=== PATIENT | female | born 2005 | race Caucasian/White ===

== ENCOUNTER 2024-08-24 15:56 | Emergency (ER) | payer BC, SELFPAY ==
[2024-08-24 15:56] VITALS: BMI 37.5
[2024-08-24 15:57] VITALS: BP 175/96
--- NOTE | 2024-08-24 17:19 | ED.GENMED ---
History of Present Illness
General
Chief Complaint: Throat Problem
Source: patient
Exam Limitations: none
Time Seen by Provider: 08/24/24 16:55
Nursing documentation reviewed up to this point in time: agreed with
History of Present Illness
History of Present Illness:
Patient is a 18-year-old female who presents to the ER for evaluation of sore throat. Patient is had a sore throat for the past 3 weeks. [facility]. She did complete 3 dose of
prednisone and was on amoxicillin for 4 days. She completed this 4 days ago however was told to stop it because her rapid strep was negative.
She reports no improvement of symptoms and a slight worsening of symptoms. She denies any actual shortness of breath. She is able to drink fluids and swallow her own secretions.
Review of Systems
Review of Systems
Allergies reviewed?: Yes
All Other Systems: ROS reviewed and negative except as documented in HPI and ROS
Constitutional: Reports no symptoms; Denies fever, fatigue or chills
EENT: Reports sore throat; Denies tearing, mouth pain, mouth swelling or runny nose
Respiratory: Reports no symptoms; Denies trouble breathing
Cardiac: Reports no symptoms
ABD/GI: Reports no symptoms
: Reports no symptoms
Musculoskeletal: Reports no symptoms
Skin: Reports no symptoms
Neurological: Reports no symptoms
Psychiatric: Reports no symptoms
Phy Exam
General Physical Exam
General Presentation: no apparent distress
General age: appears stated age
General Skin: warm and dry
General Habitus: normal
General Mental: alert
General Hydration: appears well hydrated
ENT Exam
ENT Exam: other (Tonsils are very swollen there is exudate and left posterior pharynx appears full uvula appears midline+ anterior cervical lymphadenopathy. No trismus no drooling)
Cardiovascular Exam
Cardiovascular Exam: regular rate/rhythm, no murmur and normal peripheral pulses
Pulmonary Exam
Pulmonary Exam: lungs clear and no respiratory distress
Neurological Exam
Neurological Exam: alert and oriented x3
Musculoskeletal Exam
Musculoskeletal Exam: full ROM
Skin Exam
Skin Exam: normal color and warm/dry
Psychiatric Exam
Psychiatric Exam: normal mood/affect
Course
Orders/Labs/Results
Orders:
Orders
08/24/24 16:02
Test Result ONCE
08/24/24 17:16
CT Neck With Iv Contrast Urgent
Comment:
Reason For Exam: woresning sore throat
08/24/24 17:17
IV Insert/Care/Rem.- Treatment PRN
0.9% Sodium Chloride 1000 ml [Nss] 1,000 ml IV BOLUS
Dexamethasone Sod Phosphate [Decadron] 10 mg IV NOW STA
08/24/24 17:18
Ketorolac [Toradol] 15 mg IV NOW STA
08/24/24 17:42
Complete Blood Count/With Diff Urgent
Comprehensive Metabolic Panel Urgent
HCG, Serum Qualitative Screen Urgent
Monotest Urgent
Rapid Strep Group A Urgent
MARIANA Source: Throat/Pharynx
Specimen Description:
Date Specimen was Collected: 08/24/24
Time Specimen was Collected: 17:41
Throat Culture [Throat Culture, Comprehensive] Urgent
MARIANA Source: Throat/Pharynx
Specimen Description:
Date Specimen was Collected: 08/24/24
Time Specimen was Collected: 17:41
08/24/24 20:13
Clindamycin Phosphate [Cleocin] 300 mg 0.9% Sodium Chloride [Nss] 50 ml IV NOW
08/24/24 20:33
Acetaminophen [Tylenol] 650 mg PO NOW STA
08/24/24 20:34
Vital Signs- Treatment ONCE
Frequency: Once
Abnormal Lab Results
08/24/24
17:42
WBC 13.8 H 10^3/uL
(4.8-10.8)
MCH 26.2 L pg
(27.0-31.0)
MCHC 32.3 L g/dL
(33.0-37.0)
Abs Immat Gran (auto) 0.1 H 10^3/uL
(0-0.05)
Absolute Neuts (auto) 10.4 H 10^3/uL
(1.4-6.5)
Absolute Monos (auto) 0.9 H 10^3/uL
(0.1-0.6)
Neutrophils % 75.6 H %
(42.2-75.2)
Lymphocytes % 16.5 L %
(20.5-51.1)
Chloride 108 H mmol/L
(98-107)
ALT 40 H U/L
(0-35)
08/24/24 17:42
08/24/24 17:42
Vital Signs
Initial and Last Documented VS:
Initial Vital Signs
Temp Pulse Resp BP Pulse Ox
100.0 F 112 18 175/96 99
08/24/24 15:57 08/24/24 15:57 08/24/24 15:57 08/24/24 15:57 08/24/24 15:57
Last Documented Vital Signs
Temp Pulse Resp BP Pulse Ox
100.0 F 112 18 175/96 99
08/24/24 15:57 08/24/24 15:57 08/24/24 15:57 08/24/24 15:57 08/24/24 15:57
Material Mover consulted with Physician
Material Mover consulted with physician?: Yes
Name of Physician Consulted: Katelynn
MDM/Problems Addressed
MDM/Problems Addressed:
As documented patient is a 18-year-old female who has had intermittent sore throat for the past several weeks and several days of steroid and several days of antibiotics however has tested negative for strep. Patient presents with persistent sore
throat. She is nontoxic she is not drooling low-grade temp of 100. Her white count is minimally elevated 13.8. She does have obvious swelling to the posterior pharynx soft tissue palate region uvula midline exudative tonsils CAT scan does show
findings of slight is with a hypodense collection along the left palate teen tonsil likely peritonsillar abscess. Case discussed with ENT Dr. Brennan on-call. Patient received fluids and Decadron. Will give 1 dose of clindamycin and he will have
patient seen in the morning in the [place] office. Instructions reviewed with mother and patient. Will send a script of Clindamycin to pharmacy .
*Radiology
Radiology exam reviewed: radiology read reviewed (Findings of tonsillitis with a hypodense collection along the left palatine tonsil likely peritonsillar abscess)
*Pulse Oximetry
Patient hypoxic: no
*Critical Care Note
Total Time (30-74mins, 75-104mins- exclusive of procedures): Not Applicable
Patient Management
Discussion with other providers: [place] (ENT DR Brennan )
ED Attending Note
-
Portions of this chart may have been created with voice recognition software.� Occasional wrong word or��sound alike� substitutions may have occurred due to the inherent limitations of voice recognition software.
Discharge Plan
Departure
Patient Disposition: Home (Routine Discharge)
Date of Disposition: 08/24/24
Time of Disposition: 20:32
Patient with high blood pressure during this ER visit?: Yes
Condition: Fair
Covid-19: Not Applicable
Discharge Problem:
Abscess, peritonsillar
Instructions: Peritonsillar Abscess, Adult (DC), BLOOD PRESSURE
Prescriptions:
New
clindamycin HCl [Cleocin HCl] 300 mg capsule
300 mg PO Q6H Qty: 40 0RF
Referrals:
Dick Brennan MD [Active] -
UNKNOWN - PT DOES,NOT KNOW [Family Provider] -
Activity Restrictions/Additional Instructions:
As discussed you may either call ENT office in the morning or go directly to the office in [place] for evaluation and treatment of peritonsillar abscess.
You were given a dose of IV antibiotics and a prescription for clindamycin was sent to your pharmacy. Return if any worsening of symptoms
Interventions
Interventions:
*Risk Screen - Suicide Last Done: 08/24/24 15:57
*General Assessment Last Done: 08/24/24 15:57
*Neglect/Abuse Screening Last Done: 08/24/24 15:57
*ED- Fall Risk Assessment Last Done: 08/24/24 18:24
*ED COVID-19 Vaccine History Last Done: 08/24/24 15:57
ED-EENT Assessment Last Done: 08/24/24 17:45
ED- Pulmonary Assessment Last Done: 08/24/24 17:46
Discharge Date and Time
Print Language: MOZAMBICAN
[2024-08-24] MEDS: TORADOL 15 MG IV (17:33)
[2024-08-24] MEDS: NSS 1000 IV (17:33)
[2024-08-24] MEDS: DECADRON 10 MG IV (17:33)
[2024-08-24 17:56] LABS: % Basophils 0.2 % (0-2); % Immature Granulocytes 0.4 % (0-0.5); % Lymphocytes 16.5 % (20.5-51.1); % Monocytes 6.3 % (1.7-9.3); % Neutrophils 75.6 % (42.2-75.2); Absolute Eosinophils 0.1 10^3/uL (0-0.7); Absolute Immature Granulocytes 0.1 10^3/uL (0-0.05); Absolute Lymphocytes 2.3 10^3/uL (1.2-3.4); Absolute Monocytes 0.9 10^3/uL (0.1-0.6); Absolute Neutrophils 10.4 10^3/uL (1.4-6.5); Hemoglobin 13.9 g/dL (12.0-16.0); Mean Corp Hgb Conc. 32.3 g/dL (33.0-37.0); Mean Corpuscular Hgb 26.2 pg (27.0-31.0); Mean Corpuscular Volume 81.1 fL (81.0-99.0); Mean Platelet Volume 9.7 fL (7.4-10.4); Nucleated Red Blood Cells % 0 %; Platelet Count 341 10^3/uL (130-400); Red Cell Dist. Width 13.9 % (11.5-14.5); White Blood Cell Count 13.8 10^3/uL (4.8-10.8)
[2024-08-24 18:02] LABS: HCG, Serum Qualitative Screen Negative; Monotest Negative (Negative)
[2024-08-24 18:05] LABS: ALT (SGPT) 40 U/L (0-35); AST (SGOT) 23 U/L (14-36); Alkaline Phosphatase 77 U/L (38-126); Blood Urea Nitrogen 9 mg/dl (7-17); Calcium 9.9 mg/dl (8.4-10.2); Carbon Dioxide 24 mmol/L (22-30); Chloride 108 mmol/L (98-107); Glucose 86 mg/dl (70-99); Potassium 4.4 mmol/L (3.5-5.1); Sodium 142 mmol/L (135-145); Total Bilirubin 0.5 mg/dl (0.2-1.3); Total Protein 7.4 g/dl (6.3-8.2); eGFR > 60.00
[2024-08-24] MEDS: TYLENOL 650 MG PO (21:12)
[2024-08-24] MEDS: CLEOCIN 52 MG IV (21:15)
[2024-08-24 21:21] VITALS: BP 138/84
== END 2024-08-24 22:04 | disposition home or self-care (01) ==
LOC: EMR 15:56
PROVIDERS: Student in an Organized Health Care Education/Training Program; EMERGENCY PHYSICIAN Emergency Medicine
DX: J36 Peritonsillar abscess (principal); R03.0 Elevated blood-pressure reading, without diagnosis of hypertension
CPT/HCPCS: 99285; 96365; 96375 ×2; 96361; 70491; 80053; 84703; 85025; 86308; 87070; 87880; Q9967

== ENCOUNTER 2024-10-05 06:25 | Day surgery (SDC) | payer BC, SELFPAY ==
[2024-10-05] VITALS (10 sets, daily range): BP systolic 120–150; BP diastolic 72–91; BMI 34.6
[2024-10-05] MEDS: NORMOSOL-R/PLASMALYTE-A 1000 IV (10:25)
[2024-10-05] MEDS: DILAUDID 0.5 MG IV (13:59)
== END 2024-10-05 15:44 | disposition home or self-care (01) ==
LOC: SDS 06:25
PROVIDERS: ATTENDING PHYSICIAN Otolaryngology
DX: J03.90 Acute tonsillitis, unspecified (principal); J35.01 Chronic tonsillitis
CPT/HCPCS: 42821; 88304